=== PATIENT | male | born 1970 | race Caucasian/White ===

== ENCOUNTER 2021-05-26 13:25 | Emergency (ER) | payer BC, OTHER ==
[2021-05-26] MEDS ORDERED: Diphtheria,Pertussis(Acell),Tetanus Vaccine 0.5 ML Syringe IM ONE (13:35)
[2021-05-26] MEDS ORDERED: Lidocaine 1% PF 2 ML SDV INJECT ONE (13:35)
--- NOTE | 2021-05-26 14:07 | EDM.PDOC ---
ED HPI GENERAL MEDICAL PROBLEM - General Chief Complaint: Laceration Stated Complaint: L HAND POINTER FINGER CUT OPEN Time Seen by Provider: 05/26/21 13:27 Source of Information: Reports: Patient History Limitations: Reports: No Limitations - History of Present Illness INITIAL COMMENTS - FREE TEXT/NARRATIVE: HISTORY AND PHYSICAL: History of present illness: Patient is a 50-year-old male who presents to the emergency room with complaints of a laceration to his left index finger. He states he was wearing leather gloves when he was using a welder production line arc that slipped resulting in the laceration. He has good flexion and extension of the fingers. Denies any numbness, tingling or difficulty with use of the hand. No other extremity involvement. He is unsure of his last tetanus update. Review of systems: As per history of present illness and below otherwise all systems reviewed and negative. Past medical history: As per history of present illness and as reviewed below otherwise noncontributory. Surgical history: As per history of present illness and as reviewed below otherwise noncontributory. Social history: See social history for further information Family history: As per history of present illness and as reviewed below otherwise noncontributory. Physical exam: General: Well developed and well nourished 50 year old male. Alert and orientated x 3. Nontoxic in appearance and in no acute distress. Vital signs are stable and have been reviewed by me. Nursing notes were reviewed. HEENT: Atraumatic, normocephalic, pupils equal and reactive bilaterally, nega tive for conjunctival pallor or scleral icterus, mucous membranes moist, trachea midline. No drooling or trismus noted. No meningeal signs. No hot potato voice noted. Lungs: Clear to auscultation bilaterally. No wheezes, rales, or rhonchi. Chest nontender. Normal work of breathing, no accessory muscles used. Heart: S1S2, regular rate and rhythm without overt murmur, gallops, or rubs. No JVD. No peripheral edema Abdomen: Soft, nondistended, nontender. Skin: 2 cm laceration a base of palmar aspect of left index finger. Remaining skin is intact, warm, dry. No lesions or rashes noted. Hematologic: No petechiae or purpra. Mucosa appropriate color and normal nail bed color and refill. Extremities: SEE SKIN for details, he has good flexion and extension of the finger with good strength/resistance. He moves all other extremities per self without difficulty or deficits, negative for cords or calf pain. Neurovascular unremarkable. Neuro: Awake, alert, oriented. Cranial nerves II through XII unremarkable. Cerebellum unremarkable. Motor and sensory unremarkable throughout. Exam nonfocal. Psychiatric: Mood and affect are appropriate. Normal thought process. Answering questions appropriately. Please note that the patient was seen and evaluated during the 2019 SARS-CoV-2 novel coronavirus pandemic period. Community viral transmission is ongoing at time of this encounter and the emergency department is operating under pandemic response procedures. Medical Decision Making: Patient is a 50-year-old male who presents to the emergency room with complaints of a laceration to the base of his left index finger along the palmar surface. 1% lidocaine was used to anesthetize the area. Chlorhexidine and wound wash was used to cleanse the site. I did obtain an x-ray. X-ray shows no acute fracture or dislocation. Soft tissue laceration at the palmar aspect at the base of the 2nd digit, anterior to the proximal phalanx. There are small radiodensities projecting over the radial and palmar aspects of the laceration, concerning for tiny punctate foreign bodies. While investigating the laceration site I was able to remove 2 small pieces of metal. Again site was thoroughly cleansed and irrigated. Does appear to have tendon sheath partial tear although he is able to fully extend and flex the affected finger. 4-0 nylon, #5 interrupted sutures were placed. Patient tolerated well. We did discuss in great length the importance of following up with the hand surgeon. I have talked with the patient about today's findings, in addition to providing specific details for plan of care. Reassessment at the time of disposition demonstrates that the patient is in no acute distress. Will place patient on antibiotic and give follow-up information for the hand surgeon at [facility] as he does just live outside of [place]. the patient is stable for discharge, counseling was provided and we discussed in great detail signs and symptoms that would prompt them to return to the Emergency Department. Medication, follow up and supportive care measures were reviewed and discussed. Voices understanding and is agreeable to plan of care. Denies any further questions or concerns at this time. Diagnostics: Finger x-ray Therapeutics: Lidocaine, Tdap, Keflex, Tramadol Prescription: Wadsworth, Keflex Impression: Finger laceration involving tendon Plan: 1. You were evaluated today on an emergent basis. Your laceration was fairly significant involving your tendon. To prevent infection, I have prescribed an antibiotic. I do want you to follow up with Hand Surgeon at [facility] to make sure you don't have further complication and heal appropriately. Keep the skin clean and dry, wash gently with mild soap and water daily. Sutures to be removed in 7-10 days. 2. You can alternate Tylenol and ibuprofen as needed for pain and fever management. Wadsworth for moderate to severe pain. This medication may cause drowsiness, so do not take while driving or needing to be functioning outside the house. 3. We encourage you to follow up Hand Surgeon (Dr Rowe or Dr Parr) in the next few days for re-evaluation and further care/management. 4. If your symptoms should worsen, new symptoms develop or any of the signs and symptoms we discussed should arise please return to the emergency room or call 911 (if needed). Definitive disposition and diagnosis as appropriate pending reevaluation and review of above. Left Finger-Index Pain Score (Numeric/FACES): 5 - Related Data Allergies Allergy/AdvReac Type Severity Reaction Status Date / Time Penicillins Allergy Other Verified 05/26/21 13:29 Home Meds: Home Meds Hydrocodone/Acetaminophen [HYDROcodone-Acetaminophen 5-325 MG] 1 - 2 tab PO Q4HR PRN #20 tablet 05/26/21 [Rx] cephALEXin [Keflex] 500 mg PO BID 5 Days #10 cap 05/26/21 [Rx] traMADol [Ultram] 50 mg PO Q4H PRN #15 tab 05/26/21 [Rx] Past Medical History - Past Health History Medical/Surgical History: Denies Medical/Surgical History - Infectious Disease History Infectious Disease History: Reports: Shingles Social & Family History - Recreational Drug Use Recreational Drug Use: No ED ROS GENERAL - Review of Systems Review Of Systems: Comprehensive ROS is negative, except as noted in HPI. ED EXAM, SKIN/RASH Exam: See Below (See dictation) ED SKIN PROCEDURES - Laceration/Wound Repair Left index finger Appearance: Subcutaneous, Linear Distal NVT: Neuro & Vascular Intact, Other (Appears to have partial tendon involvement, although full ROM) Local Anesthetic Volume: 3cc Skin Prep: Chlorhexidine (Hibiciens), Saline, Sterile Drape Saline Irrigation (cc's): 500 Exploration/Debridement/Repair: Wound Explored, In a Bloodless Field, Explored to Base, Minimal Debridement, Foreign Material Removed Closed with: Sutures Lac/Wound length In cm: 2 Suture Size: 4-0 # of Sutures: 5 Suture Type: Nylon, Interrupted, Simple Drain Placement: No Sterile Dressing Applied: Provider Tetanus Status Addressed: Yes Complications: No Course - Vital Signs Last Recorded V/S: Last Vital Signs Temp 98.1 F 05/26/21 13:30 Pulse 77 05/26/21 13:30 Resp 17 05/26/21 13:30 BP 131/85 05/26/21 13:30 Pulse Ox 96 05/26/21 13:30 - Orders/Labs/Meds Orders: Active Orders 24 hr Category Date Time Status Vaccine to be Administered/Admin Charge [RC] ASDIRECTED Care 05/26/21 13:35 Active Meds: Medications Discontinued Medications Generic Name Dose Route Start Last Admin Trade Name Freq PRN Reason Stop Dose Admin Cephalexin 500 mg 05/26/21 14:09 Cephalexin 500 Mg Cap PO 05/26/21 14:10 ONETIME ONE Diphtheria/Tetanus/Acell Pertussis 0.5 ml 05/26/21 13:35 05/26/21 13:41 Diphtheria,Pertussis(Acell),Tetanus Vaccine 0.5 Ml Syringe IM 05/26/21 13:36 0.5 ml .ONCE ONE Administration Lidocaine HCl 4 ml 05/26/21 13:35 05/26/21 13:40 Lidocaine 1% Pf 2 Ml Sdv INJECT 05/26/21 13:36 4 ml ONETIME ONE Administration Tramadol HCl 50 mg 05/26/21 14:10 Tramadol 50 Mg Tab PO 05/26/21 14:11 ONETIME ONE Departure - Departure Time of Disposition: 14:07 Disposition: Home, Self-Care 01 Clinical Impression: Finger laceration involving tendon Qualifiers: Encounter type: initial encounter Qualified Code(s): S61.219A - Laceration without foreign body of unspecified finger without damage to nail, initial encounter - Discharge Information Prescriptions: Hydrocodone/Acetaminophen [HYDROcodone-Acetaminophen 5-325 MG] 1 - 2 tab PO Q4HR PRN #20 tablet PRN Reason: Pain (Moderate 4-6) cephALEXin [Keflex] 500 mg PO BID 5 Days #10 cap traMADol [Ultram] 50 mg PO Q4H PRN #15 tab PRN Reason: Pain Forms: ED Department Discharge Additional Instructions: The following information is given to patients seen in the emergency department who are being discharged to home. This information is to outline your options for follow-up care. We provide all patients seen in our emergency department with a follow-up referral. The need for follow-up, as well as the timing and circumstances, are variable depending upon the specifics of your emergency department visit. If you don't have a primary care physician on staff, we will provide you with a referral. We always advise you to contact your personal physician following an emergency department visit to inform them of the circumstance of the visit and for follow-up with them and/or the need for any referrals to a consulting specia list. The emergency department will also refer you to a specialist when appropriate. This referral assures that you have the opportunity for follow-up care with a specialist. All of these measure are taken in an effort to provide you with optimal care, which includes your follow-up. Under all circumstances we always encourage you to contact your private physician who remains a resource for coordinating your care. When calling for follow-up care, please make the office aware that this follow-up is from your recent emergency room visit. If for any reason you are refused follow-up, please contact the [facility] Emergency Department at and asked to speak to the emergency department charge nurse. [facility] [address] [place] [id number] [facility] [address] [place] [id number] Thank you for choosing the [facility] emergency department in [place] for your medical needs today. It was a pleasure caring for you. Today you were seen in the emergency department for Your prescription was electronically sent to: 1. You were evaluated today on an emergent basis. Your laceration was fairly significant involving your tendon. To prevent infection, I have prescribed an antibiotic. I do want you to follow up with Hand Surgeon at [facility] in [place] to make sure you don't have further complication and heal appropriately. Keep the skin clean and dry, wash gently with mild soap and water daily. Sutures to be removed in 7-10 days. 2. You can alternate Tylenol and ibuprofen as needed for pain and fever management. Wadsworth for moderate to severe pain. This medication may cause drowsiness, so do not take while driving or needing to be functioning outside the house. 3. We encourage you to follow up Hand Surgeon (Dr Rowe or Dr Parr) in the next few days for re-evaluation and further care/management. 4. If your symptoms should worsen, new symptoms develop or any of the signs and symptoms we discussed should arise please return to the emergency room or call 911 (if needed). Sepsis Event Note (ED) - Evaluation Sepsis Screening Result: No Definite Risk - Focused Exam Vital Signs: Vital Signs Temp Pulse Resp BP Pulse Ox 05/26/21 13:30 98.1 F 77 17 131/85 96 - My Orders Last 24 Hours: My Active Orders 05/26/21 13:35 Vaccine to be Administered/Admin Charge [RC] ASDIRECTED - Assessment/Plan Last 24 Hours: My Active Orders 05/26/21 13:35 Vaccine to be Administered/Admin Charge [RC] ASDIRECTED
[2021-05-26] MEDS ORDERED: Cephalexin 500 MG Cap PO ONE (14:09)
[2021-05-26] MEDS ORDERED: traMADol 50 MG Tab PO ONE (14:10)
--- NOTE | 2021-05-26 14:16 | CR ---
Indication: Finger laceration. Technique: Three views of the left hand 2nd digit. Comparison: None Findings/Impression: No acute fracture or dislocation. Soft tissue laceration at the palmar aspect at the base of the 2nd digit, anterior to the proximal phalanx. There are small radiodensities projecting over the radial and palmar aspects of the laceration, concerning for tiny punctate foreign bodies. Dictated by Maximilian Yun MD @ 05/26/2021 2:14:19 PM (Electronically Signed)
== END 2021-05-26 14:24 | disposition home or self-care (01) ==
LOC: MW.ED 13:25
DX: S61.211A Laceration without foreign body of left index finger without damage to nail, initial encounter (principal); Z23 Encounter for immunization; Z88.0 Allergy status to penicillin; W26.8XXA Contact with other sharp object(s), not elsewhere classified, initial encounter
CPT/HCPCS: 12001; 73140-26-F1; 73140-F1; 90471; 90715; 99283-25